=== PATIENT | female | born 1995 | race Two or more races ===

== ENCOUNTER 2017-04-11 15:09 | Emergency (ER) | payer SELFPAY ==
[~2017-04-11] VITALS: Ht 167.6 cm; Wt 67.8 kg
[2017-04-11 15:25] VITALS: BP 127/85
--- NOTE | 2017-04-11 22:08 | ED.ADGEN ---
Past Medical History Past Medical History: No Pertinent History Past Surgical History: No Surgical History Alcohol Use: Occasionally Drug Use: Benzodiazepine, Marijuana Adult General Chief Complaint Chief Complaint: SUICDAL IDEATION HPI HPI Patient is a 21 year old female presents with depressed mood, anxiety and thoughts of self-harm for the past several months. Patient reports breaking up with her boyfriend 2 days ago of feeling more depressed since that time. Patient does not have a specific plan to harm herself, but states she has had suicidal thoughts in the past. She has not formally been evaluated or treated by a psychologist or guidance counselor and is requesting help for the first time. She denies drugs or homicidal ideation, delusions, paranoia, and use nations. She is accompanied at bedside by close personal friend. Review of Systems Review of Systems Review symptoms as per history of present illness. All other review symptoms are negative. Allergies Allergies Allergies Coded Allergies Type Severity Reaction Last Updated Verified No Known Drug Allergies 02/29/16 No Physical Exam Physical Exam Constitutional: Well developed, well nourished, no acute distress, non-toxic appearance. HENT: Normocephalic, atraumatic, bilateral external ears normal, oropharynx moist, no oral exudates, nose normal. Eyes: PERRLA, EOMI, conjunctiva normal, no discharge. Neck: Normal range of motion, no tenderness, supple, no stridor. Cardiovascular:Heart rate regular rhythm, no murmur. Neurologic: Alert and oriented X 3, normal motor function, normal sensory function, no focal deficits noted. \ Psychologic: Affect is flat affect, no HI/SI/hallucinations delusions or paranoia. Current Patient Data Vital Signs Vital Signs Date Time Temp Pulse Resp B/P (MAP) Pulse Ox O2 Delivery O2 Flow Rate FiO2 04/11/17 15:25 98.4 71 18 127/85 (99) 99 Room Air 98.4 EKG EKG [] Radiology/Procedures Radiology/Procedures [] Course & Med Decision Making Course & Med Decision Making Pertinent Labs and Imaging studies reviewed. (See chart for details) [Patient assessed by Shankar from the psychiatric assessment team who concurs that patient is seeking medical treatment for anxiety and depression and is low risk for suicide. Patient is agreeable to follow-up with outpatient mental health clinic tomorrow. She is discharged home and is hopeful treatment will be beneficial.. Lorelei Disclaimer Dragon Disclaimer This electronic medical record was generated, in whole or in part, using a voice recognition dictation system. CHIRAG MILLIGAN DO April 11, 2017 22:08
== END 2017-04-11 16:30 | disposition home or self-care (01) ==
LOC: ER 15:16
DX: R45.851 Suicidal ideations (principal); F32.9 Major depressive disorder, single episode, unspecified; F41.9 Anxiety disorder, unspecified; F19.10 Other psychoactive substance abuse, uncomplicated; F12.10 Cannabis abuse, uncomplicated
CPT/HCPCS: 99284